=== PATIENT | female | born 1965 | race African-American/Black ===

== ENCOUNTER 2023-11-24 13:56 | Emergency (ER) | payer OTHER, SELFPAY ==
[2023-11-24 14:06] VITALS: BP 166/98
[2023-11-24 14:40] VITALS: BMI 33.5
[2023-11-24 14:56] LABS: COVID-19 Antigen Negative (Negative)
--- NOTE | 2023-11-24 15:32 | ED.GENMED ---
History of Present Illness
General
Chief Complaint: Cold/Flu/URI Symptoms
Source: patient
Time Seen by Provider: 11/24/23 14:30
Travel History
Have you had any contact with someone who has COVID-19?: No
Do you have any symptoms of coronavirus? Fever > 100 degrees, chills, cough, shortness of breath, sore throat, loss of taste or smell, muscle aches, or headache?: Yes
Symptoms:: headache
History of Present Illness
History of Present Illness:
58-year-old female with past medical history of hypertension presenting to the emergency department for evaluation after awakening this morning with some mild shortness of breath, frontal headache, sinus congestion and some mild fatigue. When
symptoms did not improve throughout the day patient decided to come to the ER for further evaluation. She is denying any chest pain, palpitations, diaphoresis, exertional dyspnea, cough, orthopnea, PND, abdominal pain, nausea, vomiting, fevers,
chills, rigors. No known sick contacts, recent travel or recent antibiotics. Patient did not take anything for her symptoms prior to arrival.
Past History
Past History
ED Past Medical History: HTN and Other (Migraine headaches, angioedema)
ED Past Surgical History: None and Other
Social History
Tobacco: Non-smoker
Alcohol: None
Drug: None
Personal:
Living: with family
Employment: Employed
Family History
Family History: Hypertension
Review of Systems
Review of Systems
All Other Systems: ROS reviewed and negative except as documented in HPI and ROS
Phy Exam
Physical Exam
Physical Exam:
GENERAL: Alert , in no apparent distress
EYE: conjunctiva clear
NECK: Supple, no lymphadenopathy
ENT: o/p clr, mmm. TMs clear bilateral
CARDIAC: Regular rate and rhythm, no murmur
LUNGS: Clear breath sounds bilaterally, no acute respiratory distress, no wheezes/rales/rhonchi
NEUROLOGICAL: Alert and oriented
SKIN: Warm and dry, skin intact.
MUSCULOSKELETAL: well perfused.
PSYCH: Normal and appropriate interaction.
Scores
Heart Failure Risk
Heart Failure Risk Score: Not Applicable
Heart Score for Chest Pain Patients
STEMI patient?: Not applicable
Withdrawal Assessment of Alcohol
Withdrawal Assessment Completed?: Not applicable
Course
Orders/Labs/Results
Orders:
Orders
11/24/23 14:35
COVID-19 Antigen Urgent
Source: Nasal Swab
Influenza A+B Rapid Molecular Urgent
[facility] Source: Nasal Swab
Specimen Description:
11/24/23 15:18
Electrocardiogram (*1) Urgent
Reason for Study: Shortness of Breath
EKG- Treatment ONCE
CR Chest - 2 Views Urgent
Comment:
Reason For Exam: SOB
Vital Signs
Initial and Last Documented VS:
Initial Vital Signs
Temp Pulse Resp BP Pulse Ox
98.0 F 71 16 166/98 16
11/24/23 14:06 11/24/23 14:06 11/24/23 14:06 11/24/23 14:06 11/24/23 14:06
Last Documented Vital Signs
Temp Pulse Resp BP Pulse Ox
98.0 F 71 16 166/98 100
11/24/23 14:06 11/24/23 14:06 11/24/23 14:06 11/24/23 14:06 11/24/23 15:23
MDM/Problems Addressed
Differential Diagnosis Includes:
COVID, flu, other viral etiology, pneumonia, less concern for ACS
MDM/Problems Addressed:
58-year-old female presented emergency department for evaluation of some mild shortness of breath upon awakening, generalized malaise and fatigue also with a slight headache. Patient is otherwise very well-appearing here. Pulse ox was incorrectly
entered in triage showing 16%. During my reevaluation and on recheck patient's pulse ox is persistently between 98 and 100% on room air. EKG is nonischemic. COVID and flu testing were ordered and ultimately negative. Chest x-ray is pending. I
do anticipate outpatient management and discharge home pending x-ray.
Chronic conditions affecting care: HTN
Acute Exacerbation and/or Progression of Chronic Illness: HTN
*Radiology
Radiology exam reviewed: radiology read reviewed
*Pulse Oximetry
Patient hypoxic: no
*EKG
Interpreted by ED Provider?: Yes
Interpretation: normal
Comparison EKG: no changes
Heart Rate: 66
Rate: normal
Rhythm: sinus
Miranda: normal axis
Ischemia: no ischemia
*Critical Care Note
Total Time (30-74mins, 75-104mins- exclusive of procedures): Not Applicable
Patient Management
Discussion with other providers: PCP
Escalation/DeEscalation of care consider admission/obs:
Patient's EKG is unremarkable. Chest x-ray did show a 16 mm pulmonary nodule which patient and her primary care were both informed of. Patient will have outpatient follow-up for this. She is otherwise stable for discharge home.
ED Attending Note
-
Portions of this chart may have been created with voice recognition software.� Occasional wrong word or��sound alike� substitutions may have occurred due to the inherent limitations of voice recognition software.
Discharge Plan
Departure
Patient Disposition: Home (Routine Discharge)
Date of Disposition: 11/24/23
Time of Disposition: 16:01
Patient with high blood pressure during this ER visit?: Yes
Discharge Problem:
Shortness of breath
Instructions: Viral Syndrome (DC)
Prescriptions:
No Action
Furosemide
20 mg PO DAILY
Amlodipine
5 mg PO DAILY
prednisone 20 MG tablet
40 mg PO DAILY Qty: 8 0RF
famotidine 20 MG tablet
20 mg PO DAILY Qty: 10 0RF
diphenhydramine HCl [Banophen] 25 MG capsule
25 mg PO Q4HPRN PRN (Reason: allergic reaction) Qty: 20 0RF
epinephrine [EpiPen] 0.3 MG/0.3/SYRINGE auto-injector
0.3 mg IM PRN PRN (Reason: difficulty breathing) Qty: 1 0RF
oseltamivir 75 MG capsule
75 mg PO BID 5 Days 0RF
celecoxib 200 MG capsule
200 mg PO BID Qty: 20 0RF
cyclobenzaprine 10 MG tablet
10 mg PO TIDPRN PRN (Reason: back pain) Qty: 20 0RF
meclizine 25 mg tablet
25 mg PO BID PRN (Reason: dizziness) Qty: 10 0RF
Referrals:
Matt Lay DO [Family Provider] -
Stand Alone Forms: Return to Work
Interventions
Interventions:
*Risk Screen - Suicide Last Done: 11/24/23 14:40
*General Assessment Last Done: 11/24/23 14:40
*Neglect/Abuse Screening Last Done: 11/24/23 14:40
ED- Fall Risk Assessment Last Done: 11/24/23 14:39
*ED COVID-19 Vaccine History Last Done: 11/24/23 14:06
*Nursing Disposition Last Done: 11/24/23 16:06
ED- Pulmonary Assessment Last Done: 11/24/23 14:39
Discharge Date and Time
Discharge Date/Time: 11/24/23 16:08
== END 2023-11-24 16:08 | disposition home or self-care (01) ==
LOC: EMR 13:56
PROVIDERS: Physician Assistant Medical; EMERGENCY PHYSICIAN Emergency Medicine; FAMILY PHYSICIAN Internal Medicine
DX: R06.02 Shortness of breath (principal); R51.9 Headache, unspecified; R53.83 Other fatigue; I10 Essential (primary) hypertension; Z11.52 Encounter for screening for COVID-19
CPT/HCPCS: 99284; 71046; 87502; 87811; 93005

== ENCOUNTER → 2024-06-25 06:25 | Outpatient (REF) | payer OTHER, SELFPAY | LOC: RAD 06:25 | PROVIDERS: ATTENDING PHYSICIAN Internal Medicine | DX: R91.1 Solitary pulmonary nodule (principal) | CPT/HCPCS: 71250 ==